=== PATIENT | male | born 1985 | race Two or more races ===

== ENCOUNTER 2021-08-01 09:10 | Inpatient (IN) | payer OTHER ==
[~2021-08-01] VITALS: Ht 162.6 cm; Wt 76.6 kg
--- NOTE | 2021-08-01 09:41 | PHYS DOC ---
Past History Past Surgical History: Appendectomy Additional Past Surgical Histo: inguinal, umbilical hernia repairs Adult General Chief Complaint Chief Complaint: ABNORMAL LABS [facility] HPI Patient is a healthy 36-year-old presenting for abnormal labs. 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 Reports he participated in a vigorous 07/28 [employer] workout and underwent a lot more body stress than he is typically under. Reports he was extremely sore for following 48 hours with development of dark urine that was frothy which concerned him. Reports working at local [employer] and when evaluated by [facility], patient was found to have findings concerning for rhabdomyolysis with elevated liver enzymes and a creatinine kinase of 50,000 without other significant electrolyte and/or kidney involvement. Patient was called today with results and notified to p savannah to local ER for evaluation. On arrival, he is asymptomatic. He reports he still has some frothiness in his urine but otherwise it is normal in color, he denies having any issues urinating and has been urinating at baseline output Review of Systems Review of Systems Fourteen body systems of review of systems have been reviewed. See HPI for p ertinent positives and negative responses, other walters all other systems are negative, non-pertinent or non-contributory Allergies Allergies Allergies Coded Allergies Type Severity Reaction Last Updated Verified No Known Drug Allergies 08/01/21 No Physical Exam Physical Exam Constitutional: Well developed, well nourished, no acute distress, non-toxic appearance. HENT: Normocephalic, atraumatic, bilateral external ears normal, oropharynx moist, no oral exudates, nose normal. Eyes: PERRLA, EOMI, conjunctiva normal, no discharge. Neck: Normal range of motion, no tenderness, supple, no stridor. Cardiovascular: Heart rate regular, sinus rhythm, no murmurs rubs or gallops Lungs & Thorax: Bilateral breath sounds clear to auscultation Abdomen: Bowel sounds normal, soft, no tenderness, no masses, no pulsatile masses. Nonsurgical abdomen, no peritoneal signs Skin: Warm, dry, no erythema, no rash. Back: No tenderness, no CVA tenderness. Extremities: No tenderness, no cyanosis, no clubbing, ROM intact, no edema. Neurologic: Alert and oriented X 3, grossly normal motor & sensory function, no focal deficits noted. Psychologic: Affect normal, judgement normal, mood normal. Current Patient Data Vital Signs Vital Signs Date Time Temp Pulse Resp B/P (MAP) Pulse Ox O2 Delivery O2 Flow Rate FiO2 08/01/21 09:31 98.8 64 16 129/81 (97) 97 Room Air Lab Results Laboratory Tests Test 08/01/21 09:53 08/01/21 10:08 White Blood Count 6.0 x10^3/uL Red Blood Count 4.79 x10^6/uL Hemoglobin 14.6 g/dL Hematocrit 42.4 % Mean Corpuscular Volume 89 fL Mean Corpuscular Hemoglobin 31 pg Mean Corpuscular Hemoglobin Concent 35 g/dL Red Cell Distribution Width 13.1 % Platelet Count 221 x10^3/uL Neutrophils (%) (Auto) 68 % Lymphocytes (%) (Auto) 22 % Monocytes (%) (Auto) 7 % Eosinophils (%) (Auto) 3 % Basophils (%) (Auto) 1 % Neutrophils # (Auto) 4.1 x10^3uL Lymphocytes # (Auto) 1.3 x10^3/uL Monocytes # (Auto) 0.4 x10^3/uL Eosinophils # (Auto) 0.2 x10^3/uL Basophils # (Auto) 0.0 x10^3/uL Sodium Level 137 mmol/L Potassium Level 4.3 mmol/L Chloride Level 101 mmol/L Carbon Dioxide Level 29 mmol/L Anion Gap 7 Blood Urea Nitrogen 9 mg/dL Creatinine 0.7 mg/dL Estimated GFR (Cockcroft-Gault) 128.3 BUN/Creatinine Ratio 13 Glucose Level 94 mg/dL Calcium Level 8.7 mg/dL Total Bilirubin 1.0 mg/dL Aspartate Amino Transf (AST/SGOT) 2015 U/L Alanine Aminotransferase (ALT/SGPT) 548 U/L Alkaline Phosphatase 76 U/L Creatine Kinase > 745816 U/L Total Protein 7.1 g/dL Albumin 3.9 g/dL Albumin/Globulin Ratio 1.2 Urine Collection Type Unknown Urine Color Yellow Urine Clarity Clear Urine pH 7.0 Urine Specific [place] 1.015 Urine Protein Neg Urine Glucose (UA) Neg mg/dL Urine Ketones (Stick) Neg mg/dL Urine Blood Large Urine Nitrite Neg Urine Bilirubin Neg Urine Urobilinogen Dipstick 0.2 mg/dL Urine Leukocyte Esterase Neg Urine RBC Occ /HPF Urine WBC Occ /HPF Urine Squamous Epithelial Cells None /LPF Urine Bacteria 0 /HPF Current Medications Medications (Trade) Dose Ordered Sig/Beth Route PRN Reason Start Time Stop Time Status Last Admin Dose Admin Sodium Chloride 1,000 ml @ 1,000 mls/hr 1X ONCE IV 08/01/21 09:45 08/01/21 10:44 DC 08/01/21 09:56 Sodium Chloride 1,000 ml @ 1,000 mls/hr 1X ONCE IV 08/01/21 11:00 08/01/21 11:59 DC 08/01/21 11:07 Sodium Chloride 1,000 ml @ 1,000 mls/hr 1X ONCE IV 08/01/21 12:15 08/01/21 13:14 08/01/21 12:21 EKG EKG [] Radiology/Procedures Radiology/Procedures [] Heart Score C/O Chest Pain: No Risk Factors: Risk Factors: DM, Current or recent (<one month) smoker, HTN, HLP, family history of CAD, obesity. Risk Scores: Risk Factors: DM, Current or recent (<one month) smoker, HTN, HLP, family history of CAD, obesity. Course & Med Decision Making Course & Med Decision Making ABCs unremarkable. HPI, physical exam and comprehensive ER work-up concerning for rhabdomyolysis Patient received 2 L IV normal saline while in ER and tolerated this well. Reporting mild muscle cramps mostly in right upper arm but otherwise feels at baseline health Regardless, I reviewed entirety of ER work-up with patient and joint decision made to admit for further inpatient medical management. I contacted Dr. Palomares, hospitalist at [facility] and he accepted patient under his care Sammy Disclaimer Sammy Disclaimer This electronic medical record was generated, in whole or in part, using a voice recognition dictation system. Departure Departure: Impression: Primary Impression: Rhabdomyolysis Disposition: ADMITTED INPATIENT Admitting Physician: Harlan Palomares Condition: STABLE Referrals: MORIAH WALKER (PCP) ARA CHANCE DO Aug 01, 2021 09:41
[2021-08-01] MEDS ORDERED: IV NORMAL SALINE 1,000ML 1,000 ML IV ONE ×3 (09:45→12:15)
[2021-08-01 10:09] LABS: BASO % 1 % (0-3); EOS # 0.2 x10^3/uL (0.0-0.7); EOS % 3 % (0-3); HEMATOCRIT 42.4 % (39.0-53.0); HEMOGLOBIN 14.6 g/dL (13.0-17.5); LYMPH # 1.3 x10^3/uL (1.0-4.8); LYMPH % 22 % (24-48); MEAN CORPUSCULAR HEMOGLOBIN 31 pg (25-35); MEAN CORPUSCULAR HGB CONC 35 g/dL (31-37); MEAN CORPUSCULAR VOLUME 89 fL (79-100); MONO # 0.4 x10^3/uL (0.0-1.1); MONO % 7 % (0-9); NEUT # 4.1 x10^3uL (1.8-7.7); NEUT % 68 % (31-73); PLATELET COUNT 221 x10^3/uL (140-400); RED BLOOD COUNT 4.79 x10^6/uL (4.30-5.70); RED CELL DISTRIBUTION WIDTH 13.1 % (11.5-14.5)
[2021-08-01 10:17] LABS: ANION GAP 7 (6-14); BLOOD UREA NITROGEN 9 mg/dL (8-26); BUN/CREATININE RATIO 13 (6-20); CALCIUM 8.7 mg/dL (8.5-10.1); CARBON DIOXIDE 29 mmol/L (21-32); CHLORIDE 101 mmol/L (98-107); CREATININE 0.7 mg/dL (0.7-1.3); GFR 128.3; GLUCOSE 94 mg/dL (70-99); POTASSIUM 4.3 mmol/L (3.5-5.1); SODIUM 137 mmol/L (136-145)
[2021-08-01 10:33] LABS: ALBUMIN 3.9 g/dL (3.4-5.0); ALBUMIN/GLOBULIN RATIO 1.2 (1.0-1.7); ALK PHOS 76 U/L (46-116); ALT (SGPT) 548 U/L (16-63); TOTAL PROTEIN 7.1 g/dL (6.4-8.2)
[2021-08-01 10:59] LABS: BACTERIA,URINE 0 /HPF (0-FEW); BILIRUBIN,URINE NEG (NEG); CLARITY,URINE CLEAR; COLOR,URINE YELLOW; GLUCOSE,URINE NEG (NEG); NITRITE,URINE NEG (NEG); RBC,URINE OCC /HPF (0-2); UROBILINOGEN,URINE 0.2 mg/dL (0.2 mg/dL); WBC,URINE OCC /HPF (0-4)
[2021-08-01 11:41] LABS: AST (SGOT) 2015 U/L (15-37)
--- NOTE | 2021-08-01 14:08 | NUR ---
admission note Pt admitted to room 119 at 1400 via ems from ED for rhabdomyolysis.
[2021-08-01 14:25] VITALS: BP 128/72
[2021-08-01] MEDS: IV NORMAL SALINE 1,000ML 1,000 ML IV SCH (14:27)
--- NOTE | 2021-08-01 14:45 | HP ---
ADMIT DATE: 08/01/2021 ATTENDING PHYSICIAN: Dr. Palomares. CHIEF COMPLAINT: Abnormal labs. HISTORY OF PRESENT ILLNESS: The patient is a 36-year-old gentleman, active . He is very fit, alert, no underlying medical issues. He participated in the vigorous 07/28 [facility] Workout. He underwent a lot more body stress than typically under. He was extremely sore afterwards. He developed dark urine, which was frothy. He works at a local [employer], evaluated by the [facility]. He had significant rhabdomyolysis with a creatine kinase of 50,000 and a CPK repeat was 100,000. He has elevated transaminases; however, the kidney function is normal with a creatinine of 0.7. Urinalysis is dark with presence of hemoglobin, which is actually myoglobin. He is relatively asymptomatic. He is brought in then for acute rhabdomyolysis with mild symptoms. Hydration has been started. Serial chemistries have been ordered. PAST MEDICAL HISTORY: Unremarkable for any chronic illnesses. ALLERGIES: He has no drug allergies. MEDICATIONS: Only medicine [id number] Tylenol. SOCIAL HISTORY: He is a nonsmoker, nondrinker. He does chew tobacco. FAMILY HISTORY: Parents are alive in their mid 60s and healthy. He is , with 2 young children. 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 REVIEW OF SYSTEMS: Significant for the workout. No recent fevers, chills, cough, congestion, COVID exposure. All other systems reviewed and turned to be negative. PHYSICAL EXAMINATION: GENERAL: When I saw him, this is a pleasant young male who appears quite ontiver[place] and healthy. VITAL SIGNS: Initial vital signs showed a blood pressure of 129/81, pulse is 64 and regular. He is afebrile. Oxygen saturation 97% on room air. HEENT: Head is without trauma. Pupils are reactive. Sclerae are nonicteric. Oropharynx is clear. NECK: Supple. LUNGS: Clear. CARDIOVASCULAR: Regular heart tones. ABDOMEN: Soft. No guarding or rebound tenderness. EXTREMITIES: Show no cyanosis or edema. NEUROLOGIC: Function focally intact. LABORATORY DATA: Hemoglobin is 14.6 grams, white count 6000. His creatine kinase is over 100,000. AST 2015, ALT 545, creatinine 0.7 mg percent. ASSESSMENT: A 36-year-old gentleman with acute rhabdomyolysis due to rigorous workout. There are no signs of renal failure at this time. PLAN: 1. Admit to the inpatient unit. 2. Gentle IV hydration. 3. Serial chemistry. 4. Diet as tolerated. If creatinine and lab work is normal, he can be discharged tomorrow. ANDRÉS DR: CHARISMA/logan TID: [id number]
--- NOTE | 2021-08-01 17:47 | NUR ---
nursing note PT has not complained of pain for this nurse this shift. pt has been educated on visiting policies
[2021-08-01 20:53] VITALS: BP 120/72
[2021-08-02] MEDS: IV NORMAL SALINE 1,000ML 1,000 ML IV SCH (00:05)
[2021-08-02 06:37] VITALS: BP 130/72
[2021-08-02 07:56] LABS: ALBUMIN 3.3 g/dL (3.4-5.0); ALBUMIN/GLOBULIN RATIO 1.1 (1.0-1.7); CALCIUM 8.4 mg/dL (8.5-10.1); CREATININE 0.6 mg/dL (0.7-1.3); GFR 153.3; POTASSIUM 4.3 mmol/L (3.5-5.1); TOTAL BILIRUBIN 0.7 mg/dL (0.2-1.0); TOTAL PROTEIN 6.3 g/dL (6.4-8.2)
--- NOTE | 2021-08-02 09:17 | DS ---
DATE OF DISCHARGE: 08/02/2021 ATTENDING PHYSICIAN: Dr. Palomares. FINAL DISCHARGE DIAGNOSES: 1. Acute rhabdomyolysis. 2. Dehydration, resolved. 3. Renal function preserved. HISTORY AND PHYSICAL: The patient is a healthy 36-year-old gentleman. He is active . He was involved in a vigorous workout as part of the 07/28 [employer]. He developed dark urine and he presented to the ED. His CPK was over 100,000. Creatinine was adequate. Transaminases slightly elevated. He was admitted to the hospital with acute rhabdomyolysis with potential of renal involvement. PHYSICAL EXAMINATION: Please see the dictated note. PERTINENT LABORATORY AND X-RAY STUDIES: Admission hemoglobin was 14.6 g/dL with a white count of 6000. Initial CPK was over 100,000. ALT 548, AST 2015, creatinine was 0.7 mg percent. Electrolytes within normal range. Repeat chemistries the next day after gentle hydration, creatinine was down to 0.6 mg/dL. Transaminases trending downwards. Followup CK still pending that has to be diluted. He is making urine and he feels well. COURSE IN THE HOSPITAL: The patient was admitted overnight. He was started on IV hydration. Followup lab work showed stable renal function. His physical exam was unremarkable. His blood pressure was 130/70, pulse 50 and regular, afebrile, and oxygen saturation 98% on room air. He is discharged home with instructions to monitor his urine output. As long as he drinks adequately and making urine, he should be all right. I gave him copies of the H and P and lab work. I suggested the followup chemistry and [place] The patient was then discharged from our hospital in stable condition with explicit instruction and followup care. TOTAL DISCHARGE TIME: [address]: Jenni TID: [id number]
--- NOTE | 2021-08-02 09:22 | NUR ---
discharge note Pt discharged at 917 via ambulation accompanied by staff. pt given written and verbal instructions with verbal statement of understanding achieved.
== END 2021-08-02 09:24 | disposition home or self-care (01) | DRG 558 ==
LOC: ER 09:10 → 1 SOUTH 12:21
PROVIDERS: ADMIT Hospitalist; ATTEND Hospitalist
DX: M62.82 Rhabdomyolysis (principal); E86.0 Dehydration; Z72.0 Tobacco use; Z90.49 Acquired absence of other specified parts of digestive tract; Z20.822 Contact with and (suspected) exposure to COVID-19
CPT/HCPCS: 36415; 80053; 81001; 82550; 85025; 87426; 96360; 96361; U0003; 99285-25; J7030

== ENCOUNTER 2021-10-11 08:49 | Emergency (ER) | payer OTHER ==
[~2021-10-11] VITALS: Ht 162.6 cm; Wt 76.6 kg
--- NOTE | 2021-10-11 09:45 | PHYS DOC ---
Past History Past Surgical History: Appendectomy Additional Past Surgical Histo: inguinal, umbilical hernia repairs Alcohol Use: None General Adult EDM: Chief Complaint: EARACHE/EAR PAIN HPI: HPI: 36-year-old male presents with bilateral ear pain and nasal congestion. He has had this for couple days but last night he had difficulty sleeping. The press ure sensation is a little better now than it was overnight. He has been taking his [place] allergy medicine and using a nasal rinse. He just wants to make sure he does not have an ear infection. He denies fever or chills. Review of Systems: Review of Systems: Constitutional: Denies fever or chills Eyes: Denies change in visual acuity HENT: Nasal congestion, sore throat, bilateral ear fullness Respiratory: Denies cough or shortness of breath Cardiovascular: Denies chest pain or edema GI: Denies abdominal pain, nausea, vomiting, bloody stools or diarrhea : Denies dysuria Musculoskeletal: Denies back pain or joint pain Integument: Denies rash Neurologic: Denies headache, focal weakness or sensory changes Endocrine: Denies polyuria or polydipsia Lymphatic: Denies swollen glands Psychiatric: Denies depression or anxiety Allergies: Allergies: Allergies Coded Allergies Type Severity Reaction Last Updated Verified No Known Drug Allergies 08/01/21 No Physical Exam: PE: Constitutional: Well developed, well nourished, no acute distress, non-toxic appearance. [] HENT: Normocephalic, atraumatic, bilateral external ears normal, oropharynx moist, no oral exudates, nose congested. Bilateral tympanic membranes normal [] Eyes: PERRLA, EOMI, conjunctiva normal, no discharge. [] Neck: Normal range of motion, no tenderness, supple, no stridor. [] Cardiovascular: Heart rate regular rhythm, no murmur [] Lungs & Thorax: Bilateral breath sounds clear to auscultation [] Abdomen: Bowel sounds normal, soft, no tenderness, no masses, no pulsatile masses. [] Skin: Warm, dry, no erythema, no rash. [] Back: No tenderness, no CVA tenderness. [] Extremities: No tenderness, no cyanosis, no clubbing, ROM intact, no edema. [] Neurologic: Alert and oriented X 3, normal motor function, normal sensory function, no focal deficits noted. [] Psychologic: Affect normal, judgement normal, mood normal. [] Current Patient Data: Vital Signs: Vital Signs Date Time Temp Pulse Resp B/P (MAP) Pulse Ox O2 Delivery O2 Flow Rate FiO2 10/11/21 09:00 98.6 60 18 146/76 (99) 99 EKG: EKG: [] Radiology/Procedures: Radiology/Procedures: [] Heart Score: C/O Chest Pain: N/A Risk Factors: Risk Factors: DM, Current or recent (<one month) smoker, HTN, HLP, family history of CAD, obesity. Risk Scores: Score 0 - 3: 2.5% MACE over next 6 weeks - Discharge Home Score 4 - 6: 20.3% MACE over next 6 weeks - Admit for Clinical Observation Score 7 - 10: 72.7% MACE over next 6 weeks - Early Invasive Strategies Course & Med Decision Making: Course & Med Decision Making Pertinent Labs and Imaging studies reviewed. (See chart for details) Patient appears to have a viral URI. I do not see indication for antibiotics at this time. He is stable for discharge. [] Dragon Disclaimer: Dragon Disclaimer: This electronic medical record was generated, in whole or in part, using a voice recognition dictation system. Departure Departure: Impression: Primary Impression: Viral URI Disposition: HOME / SELF CARE / HOMELESS Condition: STABLE Referrals: MORIAH WALKER (PCP) Patient Instructions: Upper Respiratory Infection, Adult, [id number] Additional Instructions: You can try Sudafed or Coricidin D to help with your ear congestion. Continue to take your allergy medication and drink plenty of water. Scripts No Active Prescriptions or Reported Meds KEYON HALE DO Oct 11, 2021 09:44
== END 2021-10-11 09:50 | disposition home or self-care (01) ==
LOC: ER 08:49
DX: J06.9 Acute upper respiratory infection, unspecified (principal); H92.03 Otalgia, bilateral
CPT/HCPCS: 99281-25

== ENCOUNTER 2022-01-08 17:24 | Emergency (ER) | payer OTHER ==
[~2022-01-08] VITALS: Ht 162.6 cm; Wt 75.7 kg
[2022-01-08] MEDS ORDERED: IBUPROFEN 600 MG TABLET. PO ONE (18:00)
[2022-01-08] MEDS ORDERED: ONDANSETRON ODT 4 MG TAB.RAPDIS PO ONE (18:00)
[2022-01-08] MEDS ORDERED: ONDA4TAB12 PO (18:11)
--- NOTE | 2022-01-08 18:11 | PHYS DOC ---
Past History Past Surgical History: Appendectomy Additional Past Surgical Histo: inguinal, umbilical hernia repairs Additional Smoking Information: CHEWS TOBACCO Alcohol Use: Rarely General Adult EDM: Chief Complaint: DIARRHEA HPI: HPI: Patient is a 36-year-old male presents with nausea/diarrhea, fever. Patient states that symptoms started this morning when he woke up. Patient reports that his son was sick last week with nausea and vomiting.Patient denies vomiting. Denies abdominal pain. Denies cough or shortness of breath. Patient reports taking Tylenol prior to arrival. Denies fever at home. Patient was tested for Covid this morning which was negative. Patient temperature in the ER was 101. No medical history. Up-to-date on vaccinations. Patient reports he was vaccinated for COVID-19. Review of Systems: Review of Systems: ROS At least 10 ROS systems have been reviewed and are negative except as documented in the HPI. General: Negative except as outlined in HPI above. Skin: Negative except as outlined in HPI above. HEENT: Negative except as outlined in HPI above. Neck: Negative except as outlined in HPI above. Respiratory: Negative except as outlined in HPI above.. Cardiovascular: Negative except as outlined in HPI above. Abdomen: Negative except as outlined in HPI above. : Negative except as outlined in HPI above. Back/MSK: Negative except as outlined in HPI above. Neuro: Negative except as outlined in HPI above. Psych: Negative except as outlined in HPI above. Allergies: Allergies: Allergies Coded Allergies Type Severity Reaction Last Updated Verified No Known Drug Allergies 01/08/22 No Physical Exam: PE: Constitutional: Well developed, well nourished, no acute distress, non-toxic appearance. HENT: bilateral external ears normal, oropharynx moist, no oral exudates, nose n ormal. Eyes: PERRLA, conjunctiva normal Neck: Normal range of motion, no tenderness, supple Cardiovascular:Heart rate regular rhythm, no murmur Lungs & Thorax: Bilateral breath sounds clear to auscultation Abdomen: Bowel sounds normal, soft, no tenderness, no masses Skin: Warm, dry, no erythema, no rash. Back: No tenderness, no CVA tenderness. Extremities: No tenderness, no cyanosis, no clubbing, ROM intact, no edema. Neurologic: Alert and oriented X 3, normal motor function, normal sensory function, no focal deficits noted. Psychologic: Affect normal, judgement normal, mood normal. Current Patient Data: Vital Signs: Vital Signs Date Time Temp Pulse Resp B/P (MAP) Pulse Ox O2 Delivery O2 Flow Rate FiO2 01/08/22 17:31 101.1 97 20 130/71 (90) 96 Room Air EKG: EKG: [] Radiology/Procedures: Radiology/Procedures: [] Heart Score: C/O Chest Pain: No Risk Factors: Risk Factors: DM, Current or recent (<one month) smoker, HTN, HLP, family history of CAD, obesity. Risk Scores: Score 0 - 3: 2.5% MACE over next 6 weeks - Discharge Home Score 4 - 6: 20.3% MACE over next 6 weeks - Admit for Clinical Observation Score 7 - 10: 72.7% MACE over next 6 weeks - Early Invasive Strategies Course & Med Decision Making: Course & Med Decision Making Pertinent Labs and Imaging studies reviewed. (See chart for details) [] 36-year-old male presents with nausea/diarrhea, fever. Temperature in ER was 101. Patient given ibuprofen to treat body aches and fever. Patient is hemodynamically stable. Patient is able to keep down fluids at home. Denies vomiting. Denies abdominal pain. Patient given Zofran to treat nausea. Discussed alternating between ibuprofen and Tylenol at home. Patient given a prescription for Zofran to treat nausea at home. Patient has an appointment with PCP tomorrow afternoon. Discussed return precautions at length with patient. Patient verbalized understanding of discharge instructions. Patient is hemodynamically stable upon disposition. Dragon Disclaimer: Dragon Disclaimer: This electronic medical record was generated, in whole or in part, using a voice recognition dictation system. Departure Departure: Impression: Primary Impression: Nausea, vomiting and diarrhea Disposition: HOME / SELF CARE / HOMELESS Condition: STABLE Referrals: MORIAH WALKER (PCP) Patient Instructions: Diet for Diarrhea, Adult, Nausea, Adult Additional Instructions: You were seen in the emergency room with nausea, diarrhea, fever. You were given Motrin in the ER to treat your fever and body aches. You can alternate between Tylenol and ibuprofen at home to treat symptoms. I am sending you home with a prescription for Zofran which will help with nausea. Please keep your appointment you have scheduled tomorrow with your PCP. Return to emergency room if you have abdominal pain, uncontrolled vomiting, unable to keep liquids down. EMERGENCY DEPARTMENT GENERAL DISCHARGE INSTRUCTIONS Thank you for coming to [facility] (ED) today and trusting us with you care. We trust that you had a positivie experience in our Emergency Department. If you wish to speak to the department management, you may call the director at [phone]. YOUR FOLLOW UP INSTRUCTIONS ARE FOLLOWS: 1. Do you have a private Doctor? If you do not have a private doctor, please ask for a resource list of physicians or clinics that may be able to assist you with follow up care. 2. The Emergency Physician has interpreted your x-rays. The X-Ray specialist will also review them. If there is a change in the findings, you will be notified in 48 hours when at all possible. 3. A lab test or culture has been done, your results will be reviewed and you will be notified if you need a change in treatment. ADDITIONAL INSTRUCTIONS AND INFORMATION: 1. Your care today has been supervised by a physician who is specially trained in emergency care. Many problems require more than one evaluation for a complete diagnosis and treatment. We recommend that you schedule your follow up appointment as recommended to ensure complete treatment of you illness or injury. If you are unable to obtain follow up care and continue to have a problem, or if your condition worsens, we recommend that you return to the ED. 2. We are not able to safely determine your condition over the phone nor are we able to give sound medical advice over the phone. For these safety reasons, if you call for medical advice we will ask you to come to the ED for further evaluation. 3. If you have any questions regarding these discharge instructions please call the ED at [phone]. SAFETY INFORMATION: In the interest of safety, wellness, and injury prevention; we encourage you to wear your sealbelt, if you smoke; quite smoking, and we encourage family to use a protective helmet for bicycling and other sporting events that present an increased risk for head injury. IF YOUR SYMPTOMS WORSEN OR NEW SYMPTOMS DEVELOP, OR YOU HAVE CONCERNS ABOUT YOUR CONDITION; OR IF YOUR CONDITION WORSENS WHILE YOU ARE WAITING FOR YOUR FOLLOW UP APPOINTMENT; EITHER CONTACT YOUR PRIMARY CARE DOCTOR, THE PHYSICIAN WHOSE NAME AND NUMBER YOU WERE GIVEN, OR RETURN TO THE ED IMMEDIATELY. Scripts Amoxicillin/Potassium Clav (AMOX TR-K CLV 875-125 MG TAB) 1 Each Tablet 1 TAB PO BID for diarrhea for 5 Days, #10 TAB Prov: ISAURA DE LA ROSA APRN 01/08/22 Ondansetron (ONDANSETRON ODT) 4 Mg Tab.rapdis 4 MG PO TID PRN PRN for NAUSEA for 3 Days, #10 TAB Prov: ISAURA DE LA ROSA SLOT SHIFT MANAGER 01/08/22 ISAURA DE LA ROSA APRN Jan 08, 2022 18:11
[2022-01-08] MEDS ORDERED: AMOX1TAB11 PO (18:34)
[2022-01-08] MEDS ORDERED: AMOXICILLIN/K CLAV 875/125MG TABLET. PO ONE (18:45)
[2022-01-08 18:57] VITALS: BP 105/67
== END 2022-01-08 19:02 | disposition home or self-care (01) ==
LOC: ER 17:24
DX: R11.2 Nausea with vomiting, unspecified (principal); R19.7 Diarrhea, unspecified; R50.9 Fever, unspecified; F17.220 Nicotine dependence, chewing tobacco, uncomplicated; Z90.89 Acquired absence of other organs
CPT/HCPCS: 99284; Q0162